=== PATIENT | female | born 1970 ===

== ENCOUNTER 2021-07-21 06:28 | Day surgery (SDC) | payer OTHER ==
[~2021-07-21 06:28] MED LIST: CARBAMAZEPINE100 M1 PO; PEPCID AC20 MG PO; SERTRA PO; SERTRALINE20 MG/1 ML PO; [UNRECOGNIZED DRUG - OTHER] PO
[2021-07-21] MEDS ORDERED: PERCOCET 5-3251 EACH PO (09:58)
[2021-07-21] MEDS ORDERED: RECTICARE30 GM TOP (10:02)
== END 2021-07-21 17:15 | disposition home or self-care (01) ==
LOC: CIR.AMB 06:28
PROVIDERS: ATTEND Surgery
DX: N81.6 Rectocele (principal); K64.2 Third degree hemorrhoids; R19.4 Change in bowel habit; Z20.822 Contact with and (suspected) exposure to COVID-19; K21.9 Gastro-esophageal reflux disease without esophagitis; I87.2 Venous insufficiency (chronic) (peripheral)